=== PATIENT | male | born 1960 | race Caucasian/White ===

== ENCOUNTER 2018-02-10 08:37 | Emergency (ER) | payer OTHER, MEDICAID, SELFPAY ==
[2018-02-10 08:52] VITALS: BP 136/88; PULSE 74; RESP 20; TEMP 36.7; O2SAT 94; BMI 28.8
[2018-02-10 10:01] VITALS: BP 144/86; PULSE 74; RESP 20; O2SAT 99
--- NOTE | 2018-02-10 15:32 | ED_ITS ---
HPI - Skin/Abscess/Foreign Bdy General Chief complaint: Skin/Abscess/Foreign Body Stated complaint: STAPH INFECTION LEGS Time Seen by Provider: 02/10/18 08:42 Source: patient and family Mode of arrival: ambulatory Limitations: no limitations History of Present Illness HPI narrative: Patient presents to the emergency department today with a chief complaint of multiple small superficial abscesses since he was recently incarcerated. He denies systemic symptoms such as fever, chills nor nausea or vomiting. He has had frequent episodes of small boils since being in correction. MD complaint: rash Onset (ago): minute(s) Tetanus up to date: yes Location: chest, buttocks and RLE Severity: mild Treatments prior to arrival: attempted to drain pus at home Related Data Home Medications Medication Instructions Recorded Confirmed [Maltrexone] #0 04/25/16 duloxetine [Cymbalta] 20 mg PO QDAY #0 04/25/16 meloxicam 15 mg PO QDAY #0 04/25/16 Previous Rx's Medication Instructions Recorded doxycycline monohydrate 100 mg PO BID 10 Days #20 cap 02/10/18 Allergies Allergy/AdvReac Type Severity Reaction Status Date / Time No Known Drug Allergies Allergy Verified 02/10/18 09:51 Review of Systems Review of Systems All systems reviewed & are unremarkable except as noted in HPI and below Constitutional Denies chills, Denies fever(s), Denies lethargy and Denies weakness ENT Ears, Nose, Mouth, and Throat: Denies change in voice, Denies neck pain and Denies sore throat Cardiovascular Denies chest pain, Denies irregular heart rhythm, Denies lightheadedness, Denies palpitations, Denies dyspnea, Denies dyspnea on exertion and Denies orthopnea Respiratory Denies cough, Denies dyspnea, Denies dyspnea on exertion and Denies wheezing Gastrointestinal Gastrointestinal: Denies abdominal pain, Denies change in bowel habits, Denies diarrhea, Denies nausea and Denies vomiting Genitourinary Denies hematuria, Denies flank pain, Denies urinary incontinence and Denies urinary urgency Musculoskeletal Denies neck pain Integumentary/Breasts Comments: Multiple small cutaneous abscesses, on room anterior right lower extremity, left buttock, left abdomen and chest Neurologic Denies confusion and Denies weakness Psychiatric Denies anxiety, Denies confusion, Denies depression, Denies homicidal ideation and Denies suicidal ideation Endocrine Denies palpitations Allergic/Immunologic Denies wheezing PFSH Social History Smoking Status: Current every day smoker Exam Narrative Exam Narrative: Pleasant 57-year-old male in no obvious distress Const General: cooperative and well developed Nutritional Appearance: well nourished Orientation: alert, awake, oriented x3 and not confused HENMT Head: normocephalic and atraumatic Ears: external ears normal and TM's normal bilaterally Nose: external nose normal and No nasal discharge Face and sinus: sinuses nontender, face symmetric, no sinus tenderness and No dry mucous membranes Mouth: oral mucosae normal and moist mucous membranes Teeth and gingiva: dentition normal Throat: tonsils normal and uvula midline Eyes General: appearance normal, both eyes and all related structures Eyelids: eyelids normal EOM: EOM intact bilaterally Chest Chest: normal inspection of the chest Resp Effort & Inspection: normal respiratory effort, able to speak in complete sentences, no respiratory distress and no use of accessory muscles Auscultation: clear to auscultation bilaterally, no rales, no rhonchi and no wheezes GI Inspection: non-distended Palpation: soft, no hepatosplenomegaly, No guarding, No pulsatile mass and No tender Auscultation: normal bowel sounds Skin Other: Multiple small cutaneous abscesses with minimal induration and no fluctuance. The largest of which is on the right anterior nuñez that is already come to a head. No incision and drainage possible however a small melissa with a scalpel allow was made to obtain some purulence to send for wound culture Extrem General: full ROM, no clubbing, cyanosis or edema, no pedal edema and no calf tenderness Discharge Plan Departure Patient Disposition: Home, Self-Care Clinical Impression: Abscess Discharge Date/Time: 02/10/18 10:01 Interventions: ED Discharge Assessment Last Done: 02/10/18 10:01 Instructions: DI for Skin Abscess Activity Restrictions/Additional Instructions: There is no evidence of an emergent or life threatening illness at this time, but follow up with your doctor in 1-2 days is recommended nonetheless to continue to rule out serious underlying causes of your symptoms. Please call the office for an appointment. Please return to the Emergency Department for any worsening or persistent symptoms. Please take medications as directed. Prescriptions: New doxycycline monohydrate 100 mg capsule 100 mg PO BID 10 Days Qty: 20 RF: 0 No Action meloxicam 15 MG tablet 15 mg PO QDAY Qty: 0 RF: 0 duloxetine [Cymbalta] 20 MG capsule,delayed release(DR/EC) 20 mg PO QDAY Qty: 0 RF: 0 [Maltrexone] Qty: 0 RF: 0 Referrals: Tanja Ontiveros ARNP [Primary Care Provider] - Course Orders Ordered: ED Orders 02/10/18 09:50 Wound Culture and Gram Stain Stat Last Vital Signs Temp 98.1 F 02/10/18 08:52 Pulse 74 02/10/18 10:01 Resp 20 02/10/18 10:01 BP 144/86 H 02/10/18 10:01 Pulse Ox 99 02/10/18 10:01
== END 2018-02-10 10:01 | disposition home or self-care (01) ==
PROVIDERS: Emergency Provider Emergency Medicine; PCP Nurse Practitioner
DX: L02.91 Cutaneous abscess, unspecified (principal)
CPT/HCPCS: 87070; 87075; 87077; 87186; 87205; 99282

== ENCOUNTER → 2021-01-11 07:41 | Outpatient (CLI) | payer OTHER, SELFPAY ==
[2021-01-11] MEDS: COVID-19 VACC #1, MRNA(MOD) 100 MCG/0.5 ML VIAL IM (07:52)
== END ==
PROVIDERS: PCP Nurse Practitioner; Visit Provider Internal Medicine
DX: Z23 Encounter for immunization (principal)
CPT/HCPCS: 0011A; 91301

== ENCOUNTER → 2021-02-09 07:35 | Outpatient (CLI) | payer OTHER, SELFPAY ==
[2021-02-09] MEDS: COVID-19 VACC #2, MRNA(MOD) 100 MCG/0.5 ML VIAL IM (07:50)
== END ==
PROVIDERS: PCP Nurse Practitioner; Visit Provider Internal Medicine
DX: Z23 Encounter for immunization (principal)
CPT/HCPCS: 0012A; 91301

== ENCOUNTER 2022-09-16 19:22 | Emergency (ER) | payer OTHER, MEDICAID, SELFPAY ==
[2022-09-16 19:26] VITALS: BP 154/99; PULSE 72; RESP 16; TEMP 37.1; O2SAT 98; BMI 27.0
--- NOTE | 2022-09-16 20:21 | ED.DENTAL ---
HPI - Dental/Oral General Chief complaint: Dental/Oral Stated complaint: Toothache Time Seen by Provider: 09/16/22 20:12 Source: patient Mode of arrival: Ambulatory Limitations: no limitations History of Present Illness HPI Narrative: This is a 62-year-old male with no reported medical issues who complains of pain of his tooth 20. In the left lower jaw. Patient states he is had a cracked tooth there he started having increasing pain over the past week it is got significantly worse today. He has been chewing on Tylenol and putting it just over the site which has been helpful until this evening. He is noticed some increasing swelling. He states he had a fever 100.4 in the last day, he denies any cold cough congestion, no nasal congestion or rhinorrhea. No chest pain or shortness of breath. No nausea or vomiting. No other GI or urinary symptoms. Patient denies any daily medications. Denies any major surgeries. He states no known drug allergies. Related Data Home Medications Medication Instructions Recorded Confirmed [Maltrexone] ##0 04/25/16 duloxetine 20 mg capsule,delayed 20 mg PO QDAY ##0 04/25/16 release (Cymbalta) meloxicam 15 mg tablet 15 mg PO QDAY ##0 04/25/16 Previous Rx's Medication Instructions Recorded meloxicam 7.5 mg tablet 7.5 mg PO BID PRN pain #14 tabs 09/16/22 penicillin V potassium 500 mg 500 mg PO QID 10 days #40 tabs 09/16/22 tablet Allergies Allergy/AdvReac Type Severity Reaction Status Date / Time No Known Drug Allergies Allergy Verified 02/10/18 09:51 Review of Systems Review of Systems ROS Unobtainable: All systems reviewed & are unremarkable except as noted in HPI and below Patient History Social History Smoking Status: Former smoker Smoking Status: Former smoker alcohol intake frequency: 0-2 drinks per day Substance Use Type: does not use Exam Narrative Exam Narrative: GEN: well nourished, well appearing male, alert and oriented x 3, patient appears to be in mild distress. HEENT: Atraumatic, pupils are equal round reactive to light, extraocular movements are intact, nares are clear, TMs are clear with no fluid, there is no conjunctival pallor. Throat is clear without any exudates, erythema, tonsillar enlargement or uvular deviation, patient has some dental caries tooth 20. Appears to be cracked and the top portion is missing the bottom portion appears intact below the gumline, there is swelling, no purulent discharge. No clear fluctuant area. There is no erythema, facial changes or signs of cellulitis to the outer face. Normal speech. HEART: Regular rate and rhythm without murmur, clicks, rubs. LUNGS:Lungs clear to auscultation, no wheezes, rales, crackles, chest moves symmetrically ABD:bowel sounds normal, soft, non-tender, no guarding, rebound, rigidity, no masses noted, no hepatosplenomegaly MSCL: full range of motion, normal gait NEURO:CN 2-12 intact, sensation normal Initial Vital Signs Initial Vital Signs: Vital Signs Temperature 98.8 F 09/16/22 19:26 Pulse Rate 72 09/16/22 19:26 Respiratory Rate 16 09/16/22 19:26 Blood Pressure 154/99 H 09/16/22 19:26 Pulse Oximetry 98 09/16/22 19:26 Oxygen Delivery Method 09/16/22 19:26 Procedures [facility] [place] Name of Procedure: Patient had block at the tooth 20 on left lower jaw. . A 27 gauge needle was inserted while aspirating without any blood back. bupivacaine with epi was injected, adequate anesthesia was obtained. Course Orders Ordered: Discontinued Medications Bupivacaine HCl (Bupivacaine 0.5% Mdv) 1 ml INJ INTRA-OP ONE Stop: 09/16/22 20:29 Last Admin: 09/16/22 20:39 Dose: Not Given Documented By: KACEY Penicillin V Potassium (Penicillin 250 Mg Tab Prepack) 1 bottle [facility] [place] ONE Stop: 09/16/22 20:29 Last Admin: 09/16/22 20:38 Dose: 1 bottle Documented By: KACEY Vital Signs Vital signs: Vital Signs - 8 hr 09/16/22 19:26 Temperature 98.8 F Pulse Rate 72 Respiratory Rate 16 Blood Pressure 154/99 H Pulse Oximetry 98 Oxygen Delivery Method Room Air MDM - Dental/Oral MDM Narrative Medical decision making narrative: Discussed with patient he appears to be developing a dental infection. He is requesting some additional help with pain management and a dental block. Plan to start penicillin VK, prescription to [facility]. Patient tolerated dental block with good anesthesia. Return precautions. Need for follow-up with dentist discussed. Discharge Plan Departure Patient Disposition: Home Clinical Impression: Dental infection, Odontalgia Instructions: Tooth Abscess Activity Restrictions/Additional Instructions: Please follow-up with a dentist in the next week. You appear to be developing a dental infection. Please take antibiotics until completely gone. Take 500 mg 4 times daily times 10 days You may take Tylenol up to a 1000 mg every 6 hours. If in adequate you can take meloxicam 1 tablet every 12 hours with this medication. Prescription sent to [facility] in [place] Please return for rapidly worsening symptoms, persistent fevers, new swelling of your face, tongue airway, difficulty swallowing, vomiting or other new or concerning changes. Prescriptions: New penicillin V potassium 500 mg tablet 500 mg PO QID 10 Days Qty: 40 0RF meloxicam 7.5 mg tablet 7.5 mg PO BID PRN (Reason: pain) Qty: 14 0RF No Action meloxicam 15 MG tablet 15 mg PO QDAY Qty: 0 duloxetine [Cymbalta] 20 MG capsule,delayed release(DR/EC) 20 mg PO QDAY Qty: 0 [Maltrexone] Qty: 0 Referrals: Tanja Ontiveros ARNP [Primary Care Provider] - Visit Report Forms: Patient Portal/API
[2022-09-16] MEDS: PENICILLIN 250 MG TAB PREPACK 1 BOTTLE MISC (20:38)
[2022-09-16] MEDS: BUPIVACAINE 0.5% W/ EPI (PF) 30 ML VIAL (20:39)
== END 2022-09-16 20:55 | disposition home or self-care (01) ==
PROVIDERS: Emergency Provider Emergency Medicine; PCP Nurse Practitioner
DX: K04.7 Periapical abscess without sinus (principal); K08.89 Other specified disorders of teeth and supporting structures; R50.9 Fever, unspecified
CPT/HCPCS: 99281; 99283